=== PATIENT | female | born 1940 | race Caucasian/White ===

== ENCOUNTER 2017-01-26 14:02 | Emergency (ER) | payer MEDICARE, OTHER ==
[~2017-01-26] VITALS: Ht 170.1 cm; Wt 59.0 kg
[~2017-01-26 14:02] MED LIST: MOTRIN800 MG PO; NORCO 325 MG-51 TAB PO; PREDNICOT10 MG PO; VITAMIN D50000 I2 PO
[2017-01-26 17:39] LABS: BILIRUBIN 1+ (NEGATIVE); BLOOD NEGATIVE (NEGATIVE); CLARITY SL CLOUDY (CLEAR); COLOR YELLOW (YELLOW); GLUCOSE NEGATIVE (NEGATIVE); KETONE 2+ (NEGATIVE); LEUKO ESTERASE NEGATIVE (NEGATIVE); NITRITE NEGATIVE (NEGATIVE); PH 5.5 (5.0-9.0); PROTEIN TRACE (NEGATIVE); SPECIFIC GRAVITY >= 1.030 (1.005-1.030); UROBILINOGEN 0.2 E.U./dl (0.2-1.0)
[2017-01-26 17:49] LABS: BACTERIA 1+; MUCOUS 2+
[2017-01-26 18:46] LABS: BASO % 0.8 % (0.0-1.0); EOS # 0.1 10*3/uL (0.0-0.4); EOS % 2.2 % (1.0-4.0); HEMATOCRIT 35.5 % (37.0-47.0); HEMOGLOBIN 11.7 g/dl (12.0-16.0); LYMPH # 1.6 10*3/uL (1.3-4.4); LYMPH % 31.2 % (27.0-41.0); MEAN CELL VOLUME 91.7 fl (81.0-99.0); MEAN CORPUSCULAR HGB 30.2 pg (27.0-31.0); MEAN PLATELET VOLUME 10.7 fl (9.6-12.3); MONO # 0.5 10*3/uL (0.1-1.0); MONO % 9.7 % (3.0-9.0); NEUT # 2.8 10*3/uL (2.3-7.9); NEUT % 55.9 % (47.0-73.0); PLATELET COUNT AUTOMATED 204 10*3/uL (130-400); RED BLOOD COUNT 3.87 10*6/uL (4.10-5.10); RED CELL DISTRI WIDTH 13.7 % (0-14.5)
[2017-01-26 19:01] LABS: ALBUMIN 3.4 gm/dl (3.1-4.5); ALKALINE PHOSPHATASE 50 U/L (45-117); BILIRUBIN, TOTAL 0.3 mg/dl (0.2-1.0); BUN 30 mg/dl (7-24); CARBON DIOXIDE 28 mmol/L (21-32); CHLORIDE 107 mmol/L (98-107); EST GLOM FILT AFRICAN AMERICAN > 60 ml/min; GLUCOSE 82 mg/dL (65-99); POTASSIUM 3.8 mmol/L (3.5-5.1); SGOT/AST 20 IU/L (3-35); SGPT/ALT 17 U/L (12-78); SODIUM 141 mmol/L (136-145); TOTAL PROTEIN 6.3 gm/dL (6.4-8.2)
[2017-01-26 19:02] LABS: C-REACTIVE PROTEIN < 0.29 MG/DL (0-0.3)
== END 2017-01-26 22:00 | disposition short-term general hospital (02) ==
LOC: ED 14:02
PROVIDERS: Physician Assistant
DX: R53.1 Weakness (principal); R20.0 Anesthesia of skin; R20.2 Paresthesia of skin; M54.5 Low back pain

== ENCOUNTER 2017-02-09 11:41 | Inpatient (IN) | payer MEDICARE, OTHER ==
[2017-02-09] VITALS (9 sets, daily range): BP systolic 107–151; BP diastolic 49–90
[~2017-02-09] VITALS: Ht 167.6 cm; Wt 58.7 kg
--- NOTE | ~2017-02-09 | CON ---
[place], [place] REPORT OF CONSULTATION NAME: ALLEN LO UNIT #: [id number] ROOM: 518 DOCTOR: JESSICA JOHNSON MD BIRTHDATE: [birth year] DOS: 02/10/2017 REASON FOR CONSULTATION: Atrial fibrillation. ASSESSMENT: 1. Current presentation for incidental finding of fast heart rate. 2. Electrocardiogram in the Emergency Room showing evidence of new-onset atrial fibrillation that is asymptomatic. 3. Recent neck surgery, the patient was in rehab. 4. Elevated hemoglobin A1c with possible prediabetic status. 5. Early family history of heart disease. PLAN: 1. Cycle cardiac enzymes. 2. Check D-dimer. 3. Proceed with echocardiogram. 4. Agree with Toprol. 5. Stop heparin and initiate Xarelto. 6. We will consider MADELINE cardioversion as an outpatient in 3 weeks. 7. No further cardiac testing at this time. HISTORY AND PHYSICAL: The patient is a pleasant 76-year-old female unknown to our practice, was referred by for evaluation of newly recognized fast heart rate that was consistent with atrial fibrillation. The patient was completely asymptomatic. She is in rehab following an x-ray on January 28. The patient never had any complaint of chest pain, chest pressure, heaviness or tightness. Never has had any symptomatic palpitation or any associated dizziness, lightheadedness or near syncope. No fever, no chills, no night sweats. No PND, orthopnea or pedal edema. No dizziness, lightheadedness or near syncope. Very limited functional capacity given her recent surgery. PAST MEDICAL HISTORY: As detailed above in my assessment. SOCIAL HISTORY: The patient denies ever any tobacco, alcohol, or illicit drug abuse. FAMILY HISTORY: The patient's father had myocardial infarction at 47 and her brother had myocardial infarction at age 62. CURRENT MEDICATIONS: Lopressor, Cymbalta, Rocephin, vitamin D, Flomax, MiraLax, Os-Bravo, Zofran, magnesium, Dulcolax, Beaver, Tylenol. ALLERGIES: The patient has no known drug allergies. REVIEW OF SYSTEMS: Currently, the patient denies any headache, diplopia or blurry vision. No fever, no chills, no night sweats. No abdominal pain, no bright red blood per rectum or tarry stools. Admits to joint pain and occasional muscular pain. No anxiety. Occasional depression. No polyuria, no polydipsia, no skin rash. Review of all other systems has been negative. [place], [place] REPORT OF CONSULTATION NAME: ALLEN LO UNIT #: [id number] ROOM: 518 DOCTOR: JESSICA JOHNSON MD BIRTHDATE: [birth year] PHYSICAL EXAMINATION: GENERAL: The patient is alert, oriented x3, quite pleasant. VITAL SIGNS: Blood pressure currently 130/75, heart rate 150, respiratory rate of 14, temperature 99 which is equivalent to T-max. HEENT: Extraocular muscles intact. Pupils equal, round, reactive to light. Conjunctivae: No pallor. Throat: No petechiae. NECK: Good carotid upstroke. Unable to appreciate any bruit, no lymphadenopathy, no thyromegaly. HEART: S1, S2 with holosystolic murmur at left upper sternal border, distant heart sound. No rub or sternal heave. CHEST AND BACK: No deformities. LUNGS: Clear to auscultation. Slight decrease in air movement. No wheezing, no rales. ABDOMEN: Soft, nontender, present bowel sounds, no masses, no bruits. LOWER EXTREMITIES: There is no edema with faint distal pulses. NEUROLOGIC: Grossly nonfocal. SKIN: No significant rash. LABORATORY DATA: White count 8.1, hemoglobin 12.1, potassium 4.0, creatinine 0.48. Hemoglobin A1c 6.0. Total cholesterol 177, LDL 102, HDL 52. Normal thyroid function tests. JESSICA JOHNSON MD CM:CONSTR:REPORT OF CONSULTATION 1726 02/11/17 0041 interface
--- NOTE | ~2017-02-09 | PR ---
[place], [place] PROGRESS NOTE [id number] UNIT #: [id number] ROOM: 518 DOCTOR: JESSICA JOHNSON MD BIRTHDATE: [birth year] DOS: 02/11/2017 SUBJECTIVE: The patient is sitting in bed, almost completely flat, does not appear in distress. Denies any specific cardiac complaints. No symptomatic palpitation. No chest pain. No chest pressure. No reported shortness of breath. OBJECTIVE: VITAL SIGNS: Blood pressure 130/75, heart rate 75, respiratory rate of 14, temperature 97.3. NECK: Good upstroke. No JVD. HEART: S1, S2. No rub. LUNGS: Decreased air movement, but no albaro wheezing or rales. EXTREMITIES: Lower extremities: There is no edema. LABORATORY DATA: White count is 8.9, hemoglobin 10.8, platelets 331,000. Potassium 4.0, creatinine 0.4, GFR more than 60%. Hemoglobin A1c 6.0. Total cholesterol 177, LDL 102, HDL 52. Vitamin D is 23. Normal thyroid function test. ASSESSMENT AND PLAN: Incidental finding of asymptomatic atrial fibrillation in a patient who was receiving physical therapy following her cervical fusion surgery. From the cardiac point of view, the patient is completely asymptomatic. We will follow rate control along with anticoagulation. Xarelto was explained to the patient in details with risks, benefits and alternatives. The patient agrees for that for now. There is slight drop in hemoglobin and this should be watched carefully for now. Increase activity, consider physical therapy and the patient can be discharged home from our point of view. We will see the patient in our clinic within 2-4 weeks and a stress test can be done as an outpatient. JESSICA JOHNSON MD CM:PNTRANS 2 39 JESSICA JOHNSON MD 02/11/171939 interface
[2017-02-09] MEDS ORDERED: CALCIUM 500 +1 EAC1 PO (11:59)
[2017-02-09] MEDS ORDERED: CIPRO500 MG PO (12:00)
[2017-02-09] MEDS ORDERED: HEPARIN SO5000 UNIT1 SC (12:00)
[2017-02-09] MEDS ORDERED: CYMBALTA30 MG PO (12:00)
[2017-02-09] MEDS ORDERED: VICODIN 5-3001 EACH PO (12:01)
[2017-02-09] MEDS ORDERED: MIRALAX POWDER255 G1 PO (12:01)
[2017-02-09] MEDS ORDERED: METHOCARBAMOL500 M1 PO (12:01)
[2017-02-09] MEDS ORDERED: ALEVE220 MG PO (12:02)
[2017-02-09] MEDS ORDERED: SENNA8.6 MG PO (12:03)
[2017-02-09] MEDS ORDERED: FLOMAX0.4 MG PO (12:03)
[2017-02-09 12:14] LABS: BASO # 0.1 10*3/uL (0.0-0.1); BASO % 0.6 % (0.0-1.0); EOS # 0.1 10*3/uL (0.0-0.4); EOS % 0.7 % (1.0-4.0); HEMATOCRIT 37.7 % (37.0-47.0); HEMOGLOBIN 12.1 g/dl (12.0-16.0); LYMPH % 12.4 % (27.0-41.0); MEAN CELL VOLUME 93.5 fl (81.0-99.0); MEAN CORPUSCULAR HGB CONC 32.1 g/dl (33.0-37.0); MEAN PLATELET VOLUME 9.7 fl (9.6-12.3); MONO # 0.5 10*3/uL (0.1-1.0); MONO % 5.7 % (3.0-9.0); NEUT # 6.5 10*3/uL (2.3-7.9); NEUT % 80.2 % (47.0-73.0); PLATELET COUNT AUTOMATED 360 10*3/uL (130-400); RED BLOOD COUNT 4.03 10*6/uL (4.10-5.10); RED CELL DISTRI WIDTH 13.9 % (0-14.5); WHITE BLOOD COUNT 8.1 10*3/uL (4.8-10.8)
[2017-02-09 12:23] LABS: PROTHROMBIN TIME 10.3 SECONDS (9.0-12.4)
[2017-02-09 12:31] LABS: ALBUMIN 3.1 gm/dl (3.1-4.5); ALKALINE PHOSPHATASE 77 U/L (45-117); BILIRUBIN, TOTAL 0.2 mg/dl (0.2-1.0); BUN 10 mg/dl (7-24); CARBON DIOXIDE 28 mmol/L (21-32); CHLORIDE 101 mmol/L (98-107); CPK 45 U/L (26-192); EST GLOM FILT AFRICAN AMERICAN > 60 ml/min; GLUCOSE 89 mg/dL (65-99); MAGNESIUM 2.1 mg/dL (1.5-2.1); POTASSIUM 4.4 mmol/L (3.5-5.1); SGOT/AST 18 IU/L (3-35); SGPT/ALT 34 U/L (12-78); SODIUM 138 mmol/L (136-145); TOTAL PROTEIN 6.6 gm/dL (6.4-8.2)
[2017-02-09 12:32] LABS: CKMB 1.1 ng/ml (0.5-3.6); TROPONIN I < 0.015 ng/ml (<0.045)
[2017-02-09 13:01] LABS: BILIRUBIN NEGATIVE (NEGATIVE); BLOOD TRACE-INTACT (NEGATIVE); CLARITY SL CLOUDY (CLEAR); COLOR YELLOW (YELLOW); GLUCOSE NEGATIVE (NEGATIVE); KETONE NEGATIVE (NEGATIVE); LEUKO ESTERASE 2+ (NEGATIVE); NITRITE NEGATIVE (NEGATIVE); PH 6.5 (5.0-9.0); PROTEIN NEGATIVE (NEGATIVE); SPECIFIC GRAVITY <= 1.005 (1.005-1.030); UROBILINOGEN 0.2 E.U./dl (0.2-1.0)
[2017-02-09 13:11] LABS: BACTERIA TRACE; RBC 0-2 rbc/hpf (0-2); URINE REFLEX COMMENT YES (NO); YEAST 1+
[2017-02-10] VITALS: BP 116/57
[2017-02-10 04:00] VITALS: BP 123/73
[2017-02-10 04:46] LABS: BASO # 0.1 10*3/uL (0.0-0.1); BASO % 0.8 % (0.0-1.0); EOS # 0.1 10*3/uL (0.0-0.4); EOS % 1.6 % (1.0-4.0); HEMATOCRIT 33.3 % (37.0-47.0); HEMOGLOBIN 10.8 g/dl (12.0-16.0); LYMPH # 1.2 10*3/uL (1.3-4.4); LYMPH % 13.4 % (27.0-41.0); MEAN CORPUSCULAR HGB 30.2 pg (27.0-31.0); MEAN CORPUSCULAR HGB CONC 32.4 g/dl (33.0-37.0); MONO # 0.5 10*3/uL (0.1-1.0); MONO % 5.6 % (3.0-9.0); NEUT % 78.2 % (47.0-73.0); PLATELET COUNT AUTOMATED 331 10*3/uL (130-400); RED BLOOD COUNT 3.58 10*6/uL (4.10-5.10); RED CELL DISTRI WIDTH 13.9 % (0-14.5); WHITE BLOOD COUNT 8.9 10*3/uL (4.8-10.8)
[2017-02-10 04:57] LABS: INTERNATIONAL NORM RATIO 1.1 (2.0-3.5); PROTHROMBIN TIME 11.3 SECONDS (9.0-12.4)
[2017-02-10 05:16] LABS: BUN 10 mg/dl (7-24); CARBON DIOXIDE 28 mmol/L (21-32); CHLORIDE 104 mmol/L (98-107); CHOLESTEROL 177 mg/dL (<200); EST GLOM FILT AFRICAN AMERICAN > 60 ml/min; GLUCOSE 98 mg/dL (65-99); MAGNESIUM 2.1 mg/dL (1.5-2.1); PHOSPHOROUS 3.2 mg/dL (2.5-4.9); SODIUM 141 mmol/L (136-145); THYROXINE (T4) TOTAL 10.8 ug/dl (4.8-13.9); TRIGLYCERIDES 115 mg/dl (<150); VLDL CHOLESTEROL 23 mg/dL (6-40)
[2017-02-10 05:25] LABS: FREE T4 1.23 ng/dl (0.76-1.46); FREE THYROXIN INDEX/T7 4.2 (1.5-5.4); HDL CHOLESTEROL 52 mg/dl (40-60); LDL CHOLESTEROL 102 mg/dL (9-159); T3 UPTAKE 39 % (31-39)
[2017-02-10 06:52] LABS: FOLIC ACID 13.48 ng/mL (>5.38)
[2017-02-10 08:00] VITALS: BP 127/65
[2017-02-10 12:00] VITALS: BP 130/75
[2017-02-10 16:00] VITALS: BP 100/63
[2017-02-10 20:00] VITALS: BP 130/75
[2017-02-11] VITALS: BP 130/75
[2017-02-11 08:00] VITALS: BP 103/57
[2017-02-11] MEDS ORDERED: METOPROLOL TART50 M1 PO (10:38)
[2017-02-11] MEDS ORDERED: XARE20MG PO (10:38)
[2017-02-11] MEDS ORDERED: FLUCONAZOLE100 MG PO (10:38)
[2017-02-11] MEDS ORDERED: D-1000 185 MG-11 TAB PO (10:38)
[2017-02-11] MEDS ORDERED: VICODIN 5-3001 EACH PO (10:38)
[2017-02-11 12:00] VITALS: BP 113/47
== END 2017-02-11 13:40 | disposition other institution (70) | DRG 699 ==
LOC: ED 11:41 → EDHOLD 13:14 → 5E 13:14 → EDHOLD 14:17 → 5E 15:24
PROVIDERS: Internal Medicine; Registered Nurse
DX: T83.511A Infection and inflammatory reaction due to indwelling urethral catheter, initial encounter (principal); E44.1 Mild protein-calorie malnutrition; G62.9 Polyneuropathy, unspecified; I48.91 Unspecified atrial fibrillation; N30.01 Acute cystitis with hematuria; K59.09 Other constipation; E55.9 Vitamin D deficiency, unspecified; M54.5 Low back pain; Y83.8 Other surgical procedures as the cause of abnormal reaction of the patient, or of later complication, without mention of misadventure at the time of the procedure; Z80.1 Family history of malignant neoplasm of trachea, bronchus and lung; Z82.49 Family history of ischemic heart disease and other diseases of the circulatory system; Z79.2 Long term (current) use of antibiotics; Z79.899 Other long term (current) drug therapy; Z98.1 Arthrodesis status; Y92.89 Other specified places as the place of occurrence of the external cause; Z68.21 Body mass index [BMI] 21.0-21.9, adult

== ENCOUNTER 2019-08-20 10:45 | Inpatient (IN) | payer MEDICARE, OTHER ==
[~2019-08-20] VITALS: Ht 165.1 cm; Wt 64.9 kg
[2019-08-20 10:45] VITALS: BP 177/62
[~2019-08-20 10:45] MED LIST changes: +ALEVE220 MG PO; +CALCIUM 500 +1 EAC1 PO; +CIPRO500 MG PO; +CYMBALTA30 MG PO; +D-1000 185 MG-11 TAB PO; +FLOMAX0.4 MG PO; +FLUCONAZOLE100 MG PO; +HEPARIN SO5000 UNIT1 SC; +METHOCARBAMOL500 M1 PO; +METOPROLOL TART50 M1 PO; +MIRALAX POWDER255 G1 PO; +SENNA8.6 MG PO; +VICODIN 5-3001 EACH PO; +XARE20MG PO
[2019-08-20 11:55] LABS: BASO % 0.4 % (0.0-1.0); EOS # 0.1 10*3/uL (0.0-0.4); EOS % 0.7 % (1.0-4.0); HEMATOCRIT 38.6 % (37.0-47.0); HEMOGLOBIN 12.5 g/dl (12.0-16.0); LYMPH # 0.9 10*3/uL (1.3-4.4); LYMPH % 12.4 % (27.0-41.0); MEAN CELL VOLUME 91.3 fl (81.0-99.0); MEAN CORPUSCULAR HGB 29.6 pg (27.0-31.0); MEAN CORPUSCULAR HGB CONC 32.4 g/dl (33.0-37.0); MEAN PLATELET VOLUME 10.6 fl (9.6-12.3); MONO # 0.6 10*3/uL (0.1-1.0); MONO % 7.7 % (3.0-9.0); NEUT # 5.9 10*3/uL (2.3-7.9); NEUT % 78.7 % (47.0-73.0); PLATELET COUNT AUTOMATED 221 10*3/uL (130-400); RED BLOOD COUNT 4.23 10*6/uL (4.10-5.10); RED CELL DISTRI WIDTH 13.2 % (0-14.5); WHITE BLOOD COUNT 7.5 10*3/uL (4.8-10.8)
[2019-08-20 12:15] LABS: ALBUMIN 3.9 gm/dl (3.1-4.5); ALKALINE PHOSPHATASE 72 U/L (45-117); BUN 16 mg/dl (7-24); CHLORIDE 101 mmol/L (98-107); CREATININE 0.86 mg/dL (0.55-1.02); LIPASE 56 U/L (73-393); POTASSIUM 4.2 mmol/L (3.5-5.1); SGOT/AST 20 IU/L (3-35); SGPT/ALT 23 U/L (12-78); SODIUM 135 mmol/L (136-145); TOTAL PROTEIN 7.6 gm/dL (6.4-8.2)
[2019-08-20 12:41] LABS: BILIRUBIN NEGATIVE (NEGATIVE); BLOOD 3+ (NEGATIVE); CLARITY SL CLOUDY (CLEAR); COLOR YELLOW (YELLOW); GLUCOSE NEGATIVE (NEGATIVE); KETONE 1+ (NEGATIVE); NITRITE POSITIVE (NEGATIVE); UROBILINOGEN 0.2 E.U./dl (0.2-1.0)
[2019-08-20 12:55] LABS: BACTERIA 1+; LEUKO ESTERASE NEGATIVE (NEGATIVE)
--- NOTE | 2019-08-20 12:56 | NUR ---
PT ASSISTED TO BSC PER REQUEST. PT STATES PAIN IS BETTER AFTER PAIN MEDICATION.
[2019-08-20 13:02] VITALS: BP 181/71
--- NOTE | 2019-08-20 14:50 | NUR ---
PT ASSISTED TO BSC AND BACK TO BED, GAIT UNSTEADY.
[2019-08-20 15:05] VITALS: BP 140/63
[2019-08-20 16:05] VITALS: BP 172/84
--- NOTE | 2019-08-20 16:05 | NUR ---
Time: 1604 A 78 year old FEMALE admitted to 4E under services of DR. ALIRIO CRENSHAW,MICHOACANO Bee Pt. arrived via stretcher from ER. Chief complaint: BACK PAIN. TRISTON COTTON
[2019-08-20] MEDS ORDERED: Lopressor25 MG PO (16:28)
--- NOTE | 2019-08-20 17:00 | NUR ---
DR. AMEZQUITA ON THE FLOOR AWARE PT IN ROOM AND MEDICATIONS VERIFIED.
--- NOTE | 2019-08-20 19:42 | NUR ---
PT ASSISTED UP TO BSC FLEETS ADMINISTERED, PT TOLERATED. CALL LIGHT IN REACH. VISITOR AT HER SIDE.
[2019-08-20 20:00] VITALS: BP 147/69
[2019-08-21] VITALS: BP 155/64
--- NOTE | 2019-08-21 07:24 | NUR ---
24 HR chart check completed.
[2019-08-21 08:00] VITALS: BP 127/55
--- NOTE | 2019-08-21 08:37 | NUR ---
PHYSICAL THERAPY Screen received as well as orders for PT will follow thank you Florina Culver PT
--- NOTE | 2019-08-21 08:46 | NUR ---
PT REQUESTS SOMETHING STRONGER THAN TYLENOL FOR PAIN AT THIS TIME. PT STATES THAT HER PAIN IS WORSE THAN USUAL DUE TO HER UTI. DR AMEZQUITA NOTIFIED AND NEW ORDERS RECEIVED FOR DILAUDID 0.5 MG VIA IV EVERY 6 HOURS, NEEDED. WILL NOTIFY PT AND MEDICATE WHEN AVAILABLE TO PULL
--- NOTE | 2019-08-21 09:00 | NUR ---
Busperson in to talk to patient. Patient states lives at home alone with her brother and cousin checking in on her. There are 26 steps in the home. Physician: Dr. Paty Hairston Pharmacy: [facility] Home health services: none Patient's level of ADLs: minimal assistance Patient has working utilities: yes DME: BSC, cane, walker Follow-up physician's appointment after d/c: she prefers to make her own follow up appt after discharge Does patient want to access PORTAL?: no Discharge plan discussed with patient. She lives at home alone with her brother checking in on her and her cousin helping her with getting her groceries and emptying her BSC. Discussed home health care services and she denies any home needs at this time. When medically stable she will be discharged to home. Her brother will provide transportation on discharge. +UA, on rocephin, UC pending. NAEEM CHOUDHARY
[2019-08-21 10:45] VITALS: BP 130/82
--- NOTE | 2019-08-21 11:48 | NUR ---
RESP THERAPIST TELLS THIS NURSE THAT PT IS C/O NAUSEA. DR AMEZQUITA NOTIFIED AND NEW ORDERS RECEIVED FOR ZOFRAN 8 MG EVERY 6 HOURS VIA IV NEEDED. WILL GIVE TO PT WHEN AVAILABLE TO PULL.
[2019-08-21 12:00] VITALS: BP 132/75
--- NOTE | 2019-08-21 13:14 | NUR ---
Nursing screen received and chart reviewed. Patient admitted with UTI and constipation with no bowel movement x 6 days. Patient lives alone with family checking in often. Patient denies any needs upon d/c and plans to return home upon d/c. At this time no further OT indicated. Consider OT referral if patient should have a decline in ADLs from baseline. Thank you. Leyda Moeller OTR/l
[2019-08-21 16:00] VITALS: BP 102/45
--- NOTE | 2019-08-21 19:23 | NUR ---
DR COATES CONSULT CALLED AT THIS TIME. NO ANSWER, VOICEMAIL LEFT.
[2019-08-21 20:00] VITALS: BP 141/58
--- NOTE | 2019-08-21 20:00 | NUR ---
PATIENT AWAKE AND ALERT, LAYING BED WATCHING TV AT THIS TIME. PATIENT HAS NO COMPLAINTS AT THIS TIME. SEE ASSESSMENT. WILL MONITOR.
--- NOTE | 2019-08-21 20:10 | NUR ---
PATIENT AWAKE & ALERT SITTING AT THE SIDE OF THE BED. PATIENT C/O LOWER BACK PAIN. PATIENT STATES THAT BREATHING IS OK AT THIS TIME. SEE ASSESSMENT. WILL MONITOR.
--- NOTE | 2019-08-21 20:11 | NUR ---
PATIENT REQUESTING PAIN MEDICATION FOR LOWER BACK PAIN RATED 8/10 ON 0/10 SCALE. NORCO ADMINISTERED PRESCRIBED. WILL MONITOR FOR EFFECTIVENESS.
[2019-08-22] VITALS: BP 108/50; BP 99/46
--- NOTE | 2019-08-22 | NUR ---
PATIENT RESTING WITH EYES CLOSED. RESPIRATIONS EASY AND UNLABORED. BED ALARM ON. CALL LIGHT IN REACH. WILL MONITOR.
--- NOTE | 2019-08-22 01:25 | NUR ---
24 HR chart check completed.
--- NOTE | 2019-08-22 05:45 | NUR ---
PATIENT HAS HAD NO URINE OUTPUT 11P-7A. PATIENT DENIES ANY PAIN OR PRESSURE. BLADDER SCANNED FOR NO URINE.
[2019-08-22 08:00] VITALS: BP 142/48
--- NOTE | 2019-08-22 08:56 | NUR ---
DILAUDID GIVEN PER PATIENT REQUEST FOR COMPLAINTS OF BACK PAIN RATED 8/10. WILL ASSESS EFFECTIVENESS.
--- NOTE | 2019-08-22 10:09 | NUR ---
DILAUDID EFFECTIVE PER PATIENT. WILL CONTINUE TO MONITOR.
[2019-08-22 12:00] VITALS: BP 143/70
--- NOTE | 2019-08-22 15:19 | NUR ---
Patient resting quietly with no c/o discomfort. Respirations easy and regular. Vital signs stable. No overt distress. ZACH REINA
[2019-08-22 16:00] VITALS: BP 129/56; BP 131/73
--- NOTE | 2019-08-22 19:25 | NUR ---
REPORT RECEIVED FROM ZACH STEPHENS. PT WATCHING TV AT THIS TIME. NOT S/S OF DISTRESS NOTED. CALL LIGHT IN REACH.
[2019-08-22 20:00] VITALS: BP 118/51
--- NOTE | 2019-08-22 22:00 | NUR ---
PT LYING IN BED AT THIS TIME WATCHING TV. PT VOICES NO COMPLAINTS. CALL LIGHT IN REACH.
[2019-08-23] VITALS: BP 117/55
--- NOTE | 2019-08-23 01:00 | NUR ---
PT SLEEPING AT THIS TIME.
[2019-08-23 08:00] VITALS: BP 125/53
--- NOTE | 2019-08-23 09:00 | NUR ---
case management visits with patient, she states she will return home when medically stable, patient denies any home needs
[2019-08-23 12:00] VITALS: BP 137/60
[2019-08-23 14:00] VITALS: BP 139/88
[2019-08-23] MEDS ORDERED: GABAPENTIN100 M2 PO (14:48)
--- NOTE | 2019-08-23 15:24 | NUR ---
PHYSICAL THERAPY Abril completed full report to follow pt is a moderate level of complexity 27793 PT to work on transfers, amb, balanc/safety/strengthening. Recomend SNF at discharge Florina Culver PT
--- NOTE | 2019-08-23 17:50 | NUR ---
CALLED AND SPOKE TO DR AMEZQUITA. [facility] NEW ORDER RECIEVED FOR SOCIAL SERVICE CONSULT FOR SNF.
--- NOTE | 2019-08-23 19:00 | NUR ---
REPORT RECEIVED FROM BLAYNE STEPHENS. PT LYING IN BED AT THIS TIME WATCHING TV. VOICES NO COMPLAINTS. CALL LIGHT IN REACH.
--- NOTE | 2019-08-23 19:50 | NUR ---
24 HR chart check completed.
[2019-08-24] VITALS (7 sets, daily range): BP systolic 104–146; BP diastolic 50–71
--- NOTE | 2019-08-24 07:17 | NUR ---
Patient requesting a referral to the [facility]. Contacted facility and faxed referral. 3 night stay complete. Patient ok to go when medically stable for discharge.
--- NOTE | 2019-08-24 09:35 | NUR ---
PHYSICAL THERAPY Patient seen this am 1:1 for therapy visit and was resting supine in bed upon therapist arrival. Patient identified by name / and was just getting ready to take her morning meds with Nurse present. Patient reports only mild 3/10 c/o of LBP at rest and stated she is being prepped for pm Colonoscopy. Patient transfers supine to sit EOB with MOD A, needing therapist assist with B LE's to prevent increased strain on her low back. Patient performed sit to stand transfer CONSERVATION SCIENTIST/MIN, completing SPT to BSC while demonstrating increased difficulty picking up her feet. Patient is very cognitive / guarded regarding her low back pain and reports increased c/o of pain 10/10 while sitting on BSC secondary to "slouched" seated posture. Patient returned to supine in bed MOD A and remained with call light, tray table and telephone. Will continue per POC as tolerated, total treatment time 14 minutes. Kingston Zelaya, ROBOTIC WELDING OPERATOR
--- NOTE | 2019-08-24 12:26 | NUR ---
COLO PREP COMPLETE. PACKET FILLED OUT. SURGERY NOTIFIED.
--- NOTE | 2019-08-24 15:08 | NUR ---
According to Dr. Hunter, he discharged the patient on 08/23/19 but patient did not go because patient was then scheduled for an egd/colo with Dr. Roberson. Dr. Hunter would like patients nurse to contact Dr. Roberson after procedure to make sure patient is cleared by him to go. If cleared, patient is ok to go to rehab suites this evening with current discharge order in. Contacted [place] wardrobe consultant and passed message along.
--- NOTE | 2019-08-24 15:28 | NUR ---
SPOKE TO NEENA FROM SURGERY. STATES PTS VITALS ARE STABLE AFTER EGD/COLO. DR COATES STATES THE PT CAN BE D/C. T.O. NEW MEDICATIONS INCLUDE OMEPRAZOLE 20MG DAILY AND COLACE 100 DAILY.
--- NOTE | 2019-08-24 15:37 | NUR ---
Patient is discharged. [facility] spoke with [facility] and arranged a 6pm transport to . Manager [facility] Home notified next of Kin via voice message, and work adjustment clerkralf [facility] Team to transport at 6 pm. has been notified. -JUMANA Garcia
[2019-08-24] MEDS ORDERED: COLACE100 MG PO (16:20)
[2019-08-24] MEDS ORDERED: OMEPRAZOLE MAGN20 MG PO (16:21)
--- NOTE | 2019-08-24 16:33 | NUR ---
DR AMEZQUITA NOTIFIED OF OKAY FROM DR COATES TO BE D/C FROM HIS STANDPOINT.
--- NOTE | 2019-08-24 16:39 | NUR ---
PHYSICAL THERAPY CO-SIGN I approve of the Phyical Therapy notes written above. Florina Culver PT
--- NOTE | 2019-08-24 17:24 | NUR ---
HEP LOCK REMOVED. PT TOLERATED WELL. BELONGINGS WITH PT. WILL BE PICKED UP BY [facility] FOR TRANSFER TO REHAB SUITS.
--- NOTE | 2019-08-24 17:54 | NUR ---
ELLIOTTTEAM HERE TO JAVA ARCHITECT PATIENT TO TAKE TO REHAB SUITES.
--- NOTE | 2019-08-24 17:55 | NUR ---
Discharge instructions reviewed with patient/family. Patient receptive and verbalizes understanding. Follow-up care arranged. Written instructions given to patient/family. Pt going to [facility] for rehab. Von has taken pt off the floor. TRELL SINGH
--- NOTE | 2019-08-24 18:57 | NUR ---
SPOKE WITH LOLLY FROM [facility]AB [facility]. REPORT GIVEN OVER THE PHONE.
== END 2019-08-24 18:35 | disposition other institution (70) | DRG 552 ==
LOC: ED 10:45 → 4E 14:48 → EDHOLD 14:48 → 4E 15:54
PROVIDERS: Emergency Medicine; ADMIT Internal Medicine
PROC: 0DB68ZX Excision of Stomach, Via Natural or Artificial Opening Endoscopic, Diagnostic (ICD-10-PCS; principal; 2019-08-24)
PROC: 0DJD8ZZ Inspection of Lower Intestinal Tract, Via Natural or Artificial Opening Endoscopic (ICD-10-PCS; principal; 2019-08-24)
DX: M47.896 Other spondylosis, lumbar region (principal); N39.0 Urinary tract infection, site not specified; M48.56XA Collapsed vertebra, not elsewhere classified, lumbar region, initial encounter for fracture; I48.21 Permanent atrial fibrillation; K22.10 Ulcer of esophagus without bleeding; K59.09 Other constipation; D12.3 Benign neoplasm of transverse colon; E55.9 Vitamin D deficiency, unspecified; I10 Essential (primary) hypertension; R62.7 Adult failure to thrive; K44.9 Diaphragmatic hernia without obstruction or gangrene; K29.70 Gastritis, unspecified, without bleeding; Z68.23 Body mass index [BMI] 23.0-23.9, adult; Z79.01 Long term (current) use of anticoagulants

== ENCOUNTER 2019-09-23 16:03 | Inpatient (IN) | payer MEDICARE ==
[~2019-09-23] VITALS: Ht 162.5 cm; Wt 68.5 kg
[~2019-09-23 16:03] MED LIST changes: +COLACE100 MG PO; +GABAPENTIN100 M2 PO; +Lopressor25 MG PO; +OMEPRAZOLE MAGN20 MG PO
[2019-09-23 16:18] VITALS: BP 135/85
[2019-09-23 17:03] LABS: BASO % 0.2 % (0.0-1.0); EOS % 0.2 % (1.0-4.0); HEMATOCRIT 37.7 % (37.0-47.0); HEMOGLOBIN 12.2 g/dl (12.0-16.0); LYMPH # 0.9 10*3/uL (1.3-4.4); LYMPH % 9.6 % (27.0-41.0); MEAN CELL VOLUME 92.2 fl (81.0-99.0); MEAN CORPUSCULAR HGB 29.8 pg (27.0-31.0); MEAN CORPUSCULAR HGB CONC 32.4 g/dl (33.0-37.0); MEAN PLATELET VOLUME 10.5 fl (9.6-12.3); MONO # 0.6 10*3/uL (0.1-1.0); MONO % 6.6 % (3.0-9.0); NEUT # 8.1 10*3/uL (2.3-7.9); NEUT % 83.1 % (47.0-73.0); PLATELET COUNT AUTOMATED 232 10*3/uL (130-400); RED BLOOD COUNT 4.09 10*6/uL (4.10-5.10); RED CELL DISTRI WIDTH 13.7 % (0-14.5); WHITE BLOOD COUNT 9.8 10*3/uL (4.8-10.8)
[2019-09-23 17:17] LABS: ALBUMIN 2.5 gm/dl (3.1-4.5); ALKALINE PHOSPHATASE 135 U/L (45-117); BUN 20 mg/dl (7-24); CHLORIDE 103 mmol/L (98-107); CREATININE 0.71 mg/dL (0.55-1.02); LIPASE 25 U/L (73-393); POTASSIUM 4.1 mmol/L (3.5-5.1); SGOT/AST 43 IU/L (3-35); SGPT/ALT 45 U/L (12-78); SODIUM 135 mmol/L (136-145); TOTAL PROTEIN 6.5 gm/dL (6.4-8.2)
[2019-09-23 18:10] LABS: BILIRUBIN 1+ (NEGATIVE); BLOOD 1+ (NEGATIVE); CLARITY TURBID (CLEAR); COLOR YELLOW (YELLOW); GLUCOSE NEGATIVE (NEGATIVE); KETONE 2+ (NEGATIVE); SPECIFIC GRAVITY 1.015 (1.005-1.030)
[2019-09-23 18:11] LABS: LEUKO ESTERASE NEGATIVE (NEGATIVE); NITRITE NEGATIVE (NEGATIVE); UROBILINOGEN 0.2 E.U./dl (0.2-1.0)
[2019-09-23 18:22] LABS: BACTERIA 1+; MUCOUS TRACE; RBC 0-2 rbc/hpf (0-2); WBC 16-20 wbc/hpf (0-5)
[2019-09-23 18:25] VITALS: BP 114/74
[2019-09-23 18:54] VITALS: BP 128/70
[2019-09-23 19:52] VITALS: BP 137/62
[2019-09-23 20:00] VITALS: BP 125/90
[2019-09-24] VITALS (9 sets, daily range): BP systolic 100–118; BP diastolic 52–65
[2019-09-25] VITALS (13 sets, daily range): BP systolic 90–126; BP diastolic 48–80
[2019-09-25 13:58] LABS: BUN 17 mg/dl (7-24); CHLORIDE 107 mmol/L (98-107); CREATININE 0.74 mg/dL (0.55-1.02); POTASSIUM 2.9 mmol/L (3.5-5.1); SODIUM 140 mmol/L (136-145)
[2019-09-26] VITALS (14 sets, daily range): BP systolic 101–132; BP diastolic 48–74
[2019-09-26 06:03] LABS: BUN 17 mg/dl (7-24); CHLORIDE 112 mmol/L (98-107); CREATININE 0.64 mg/dL (0.55-1.02); SODIUM 141 mmol/L (136-145)
[2019-09-26 06:44] LABS: POTASSIUM 4.6 mmol/L (3.5-5.1)
[2019-09-27] VITALS (12 sets, daily range): BP systolic 82–120; BP diastolic 50–82
[2019-09-27 09:38] LABS: BUN 17 mg/dl (7-24); CHLORIDE 106 mmol/L (98-107); CREATININE 0.65 mg/dL (0.55-1.02); POTASSIUM 3.7 mmol/L (3.5-5.1); SODIUM 137 mmol/L (136-145)
[2019-09-28] VITALS (11 sets, daily range): BP systolic 94–110; BP diastolic 48–69
[2019-09-28 05:39] LABS: BUN 20 mg/dl (7-24); CHLORIDE 109 mmol/L (98-107); CREATININE 0.79 mg/dL (0.55-1.02); POTASSIUM 4.1 mmol/L (3.5-5.1); SODIUM 137 mmol/L (136-145)
[2019-09-28 06:01] LABS: BASO # 0.1 10*3/uL (0.0-0.1); BASO % 0.7 % (0.0-1.0); EOS # 0.3 10*3/uL (0.0-0.4); EOS % 2.3 % (1.0-4.0); HEMOGLOBIN 11.9 g/dl (12.0-16.0); LYMPH # 1.2 10*3/uL (1.3-4.4); LYMPH % 10.3 % (27.0-41.0); MEAN CELL VOLUME 91.4 fl (81.0-99.0); MEAN CORPUSCULAR HGB 29.4 pg (27.0-31.0); MEAN CORPUSCULAR HGB CONC 32.2 g/dl (33.0-37.0); MEAN PLATELET VOLUME 10.5 fl (9.6-12.3); MONO # 0.7 10*3/uL (0.1-1.0); MONO % 6.2 % (3.0-9.0); NEUT # 9.3 10*3/uL (2.3-7.9); NEUT % 79.4 % (47.0-73.0); PLATELET COUNT AUTOMATED 398 10*3/uL (130-400); RED BLOOD COUNT 4.05 10*6/uL (4.10-5.10); RED CELL DISTRI WIDTH 14.3 % (0-14.5); WHITE BLOOD COUNT 11.7 10*3/uL (4.8-10.8)
[2019-09-29] VITALS (7 sets, daily range): BP systolic 90–111; BP diastolic 53–72
[2019-09-29 06:10] LABS: BUN 20 mg/dl (7-24); CHLORIDE 106 mmol/L (98-107); CREATININE 0.72 mg/dL (0.55-1.02); SODIUM 137 mmol/L (136-145)
[2019-09-30] VITALS: BP 95/52
[2019-09-30 06:31] LABS: CHLORIDE 105 mmol/L (98-107); POTASSIUM 4.3 mmol/L (3.5-5.1); SODIUM 138 mmol/L (136-145)
[2019-09-30 06:34] LABS: BUN 22 mg/dl (7-24)
[2019-09-30 08:00] VITALS: BP 102/44
[2019-09-30 12:00] VITALS: BP 100/46
[2019-09-30 16:00] VITALS: BP 100/40
[2019-09-30 20:00] VITALS: BP 100/62; BP 96/63
[2019-10-01] VITALS (8 sets, daily range): BP systolic 88–148; BP diastolic 40–59
[2019-10-01 06:25] LABS: CHLORIDE 105 mmol/L (98-107); POTASSIUM 4.2 mmol/L (3.5-5.1); SODIUM 136 mmol/L (136-145)
[2019-10-01 06:37] LABS: BUN 26 mg/dl (7-24); CREATININE 0.75 mg/dL (0.55-1.02)
[2019-10-02] VITALS: BP 84/50; BP 96/50
[2019-10-02 08:00] VITALS: BP 90/62
[2019-10-02 12:00] VITALS: BP 99/53
[2019-10-02 16:00] VITALS: BP 106/80
[2019-10-02 20:00] VITALS: BP 101/66; BP 112/68
[2019-10-03] VITALS: BP 97/63
[2019-10-03 08:00] VITALS: BP 98/62
[2019-10-03 12:00] VITALS: BP 101/56
[2019-10-03 16:00] VITALS: BP 112/51
[2019-10-03 20:00] VITALS: BP 110/60
[2019-10-04] VITALS: BP 112/68
[2019-10-04 08:00] VITALS: BP 90/60
[2019-10-04] MEDS ORDERED: DIGOXIN125 MCG PO (10:07)
[2019-10-04] MEDS ORDERED: METOPROLOL SUCC50 M1 PO (10:07)
== END 2019-10-04 13:15 | disposition other institution (70) | DRG 291 ==
LOC: ED 16:03 → EDHOLD 18:56 → 4E 18:56
PROVIDERS: Family Medicine; Internal Medicine; Nurse Practitioner Family; ADMIT Internal Medicine
PROC: 5A2204Z Restoration of Cardiac Rhythm, Single (ICD-10-PCS; principal; 2019-09-23)
PROC: 5A2204Z Restoration of Cardiac Rhythm, Single (ICD-10-PCS; 2019-09-26)
DX: I11.0 Hypertensive heart disease with heart failure (principal); J18.9 Pneumonia, unspecified organism; I48.11 Longstanding persistent atrial fibrillation; N39.0 Urinary tract infection, site not specified; I50.43 Acute on chronic combined systolic (congestive) and diastolic (congestive) heart failure; E86.0 Dehydration; Z66 Do not resuscitate; Z51.5 Encounter for palliative care; K59.09 Other constipation; J43.2 Centrilobular emphysema; G89.29 Other chronic pain; M54.5 Low back pain; R62.7 Adult failure to thrive; R91.8 Other nonspecific abnormal finding of lung field; Z79.01 Long term (current) use of anticoagulants; Z68.25 Body mass index [BMI] 25.0-25.9, adult; Z79.899 Other long term (current) drug therapy; Z82.49 Family history of ischemic heart disease and other diseases of the circulatory system; Z82.3 Family history of stroke; Z80.1 Family history of malignant neoplasm of trachea, bronchus and lung; Z79.82 Long term (current) use of aspirin

== ENCOUNTER 2020-01-24 15:00 | Inpatient (IN) | payer MEDICARE, OTHER ==
[2020-01-24] VITALS (7 sets, daily range): BP systolic 100–144; BP diastolic 57–74
[~2020-01-24] VITALS: Ht 162.6 cm; Wt 59.9 kg
[~2020-01-24 15:00] MED LIST changes: +DIGOXIN125 MCG PO; +METOPROLOL SUCC50 M1 PO
[2020-01-24 15:26] LABS: BASO % 0.4 % (0.0-1.0); EOS % 0.3 % (1.0-4.0); HEMATOCRIT 36.6 % (37.0-47.0); LYMPH # 0.9 10*3/uL (1.3-4.4); LYMPH % 8.3 % (27.0-41.0); MEAN CORPUSCULAR HGB 29.6 pg (27.0-31.0); MEAN CORPUSCULAR HGB CONC 32.2 g/dl (33.0-37.0); MEAN PLATELET VOLUME 10.2 fl (9.6-12.3); MONO # 0.7 10*3/uL (0.1-1.0); MONO % 5.9 % (3.0-9.0); NEUT # 9.4 10*3/uL (2.3-7.9); NEUT % 84.8 % (47.0-73.0); PLATELET COUNT AUTOMATED 256 10*3/uL (130-400); RED BLOOD COUNT 3.98 10*6/uL (4.10-5.10); RED CELL DISTRI WIDTH 14.8 % (0-14.5); WHITE BLOOD COUNT 11.1 10*3/uL (4.8-10.8)
[2020-01-24 15:38] LABS: ACT PARTIAL THROMBO TIME 31.7 SECONDS (20.0-32.1); INTERNATIONAL NORM RATIO 1.1 (2.0-3.5)
[2020-01-24 15:42] LABS: ALBUMIN 3.3 gm/dl (3.1-4.5); ALKALINE PHOSPHATASE 76 U/L (45-117); BUN 13 mg/dl (7-24); CHLORIDE 105 mmol/L (98-107); CREATININE 0.68 mg/dL (0.55-1.02); POTASSIUM 3.7 mmol/L (3.5-5.1); SGOT/AST 11 IU/L (3-35); SGPT/ALT 15 U/L (12-78); SODIUM 137 mmol/L (136-145)
[2020-01-24 15:44] LABS: TROPONIN I < 0.015 ng/ml (<0.045)
--- NOTE | 2020-01-24 15:56 | NUR ---
PT RESTING IN BED. WAS PROVIDED ANOTHER BLANKET. CARDIZEM STARTED
--- NOTE | 2020-01-24 16:43 | NUR ---
PT RESTING IN BED. STATES PRESSURE IN CHEST IS IMPROVING
--- NOTE | 2020-01-24 17:49 | NUR ---
A 79, admitted to 4E, under the services of EDUARDA Jensen MD with a diagnosis of CHEST PAIN . Chief complaint is CHEST PAIN . Patient arrived via stretcher from ER. Monitor applied. Initial assessment completed. Vital signs taken and recorded. EDUARDA JENSEN MD notified of admission to the unit. Orders received. See assessment for past medical history, medications and allergies. Patient and/or family oriented to unit. [facility] visitation policy reviewed. Clothing/patient valuable form completed. RAOUL SALOMON
--- NOTE | 2020-01-24 19:21 | NUR ---
DR RICE NOTFIED OF PT HAVING A STAGE 1 ON COCCYX
--- NOTE | 2020-01-24 20:01 | NUR ---
PATIENT RESTING ON BACK, NO NEEDS MADE. CARDIZEM GTT INFUSING PER ORDERS; HR 90'S, RHYTHM STRIP SHOWING AFIB. SEE SHIFT ASSESSMENT.
[2020-01-25] VITALS: BP 108/48; BP 113/43
[2020-01-25 02:00] VITALS: BP 104/57
[2020-01-25 04:00] VITALS: BP 103/42
--- NOTE | 2020-01-25 04:04 | NUR ---
ALLEN LO [id number] Please refer to the physician's history and physical for past medical history, comorbid conditions, and allergies. Diagnosis: CHEST PAIN ATRIAL FIBRILLATION WITH RVR Forest Score: 16,AT RISK WOUND DESCRIPTIONS: Wound Number: 1 Location of the wound: coccyx scar tissue noted measuring 9.0cm x 10.5cm x <0.1cm. No open areas noted at time of assessment. No drainage noted at time of assessment. Area is red and pink in color. Patient states there is discomfort but there isn't at the same time. Surface the patient is resting on: Position Pro SKIN PREVENTION RECOMMENDATION: 1. Pressure redistribution support surface as appropriate 2. Elevate heels 3. Remove boots/TEDS every shift and reapply 4. Head of bed 30 degrees as tolerated 5. Assess nutrition and hydration 6. Manage moisture 7. Avoid the use of containment devices while in bed 8. Use absorptive products on surfaces limit layers of linens on bed 9. Turn and reposition every 1-2 hours in bed and every 1 hour in chair as tolerated 10. Weight shifts every 15 minutes while up in chair 11. Offloading with pillows or device to keep heels elevated off bed 12. Monitor skin at least every shift 13. Inspect under medical devices twice a day WOUND TREATMENT RECOMMENDATIONS: Wheelchair cushion when oob Apply sureprep to coccyx allow time to dry the cover with optifoam gentle daily and prn for soiling.
--- NOTE | 2020-01-25 05:29 | NUR ---
DR RICE ON FLOOR AND NOTIFIED OF PT'S BP & HR, STATES DC SCOTT GTT.
[2020-01-25 06:13] LABS: BUN 13 mg/dl (7-24); CHLORIDE 109 mmol/L (98-107); POTASSIUM 3.9 mmol/L (3.5-5.1); SODIUM 140 mmol/L (136-145)
[2020-01-25 06:24] LABS: DIGOXIN 0.74 ng/ml (0.8-2.0)
--- NOTE | 2020-01-25 09:00 | NUR ---
Twister Frame Tender in to talk to patient. Patient states lives at home alone with her cousin staying with her at night from approximately 8p-10a. There are 12 steps in the home. Physician: Dr. Paty Hairston Pharmacy: [facility] Home health services: [facility] and [facility] Patient's level of ADLs: MINIMAL ASSIST Patient has working utilities: yes DME: walker, grabber Follow-up physician's appointment after d/c: she prefers to make her own follow up appt after discharge Does patient want to access PORTAL?: no Discharge plan discussed with patient. She lives at home alone with her cousin staying with her at night from approximately 8pm - 10am. He cooks her breakfast and makes her coffee. He also takes care of his 80 yo mother. She states she is independent in her ADLs and uses a walker for ambulation. She states her mail gets dropped on the floor and she uses a hand grabber to pick it up. Her shower is in the basement but she has a chair lift. Discussed short term rehab and she refuses. Discussed home health care services and she states she currently has [facility] and would like to resume those services on discharge. She states she also has [facility] on Tuesday and Tuesday from 11am - 1pm. She states they change the bandages on her bed sores on her bottom. When medically stable she will be discharged to home with the resumption of her [facility] and [facility]. She states her brother will provide transportation on discharge. NAEEM CHOUDHARY
[2020-01-25 12:00] VITALS: BP 114/66
--- NOTE | 2020-01-25 13:42 | NUR ---
Faxed home health resumption order to [facility]
--- NOTE | 2020-01-25 14:13 | NUR ---
Nutritional Support Services Note: Stage I area noted on coccyx no open areas noted. Appetite is poor for at this time. Regular diet as ordered. Ht.5'4 Wt.132#. IBW 110-130. She refuses a supplment at this time. Will provide pt with a night snack. Will continue to follow as needed. Izzy Henson Rdn Ld
[2020-01-25 16:00] VITALS: BP 122/53
--- NOTE | 2020-01-25 18:17 | NUR ---
MR. BECKFORD ABSOLUTELY REFUSED TO HAVE PHOTEOS OF HIS WOUNDS TAKEN. HE IS VERY FRUSTRATED OVER BEING DISCHARGED AND IS CONFUSED TO WHY HE HAS TO GO TO [facility]. IT WAS EXPLAINED TO HIM BY MYSELF AND DR. JONES THAT HE NEEDS REHAB IN ORDER TO FEEL BETTER. HE IS SADLY FRUSTRATED AND SCOFFS AT ANY SUGGESTION.
[2020-01-25 20:00] VITALS: BP 122/69
[2020-01-26] VITALS: BP 119/46
[2020-01-26 06:11] LABS: BASO # 0.1 10*3/uL (0.0-0.1); BASO % 0.7 % (0.0-1.0); EOS # 0.2 10*3/uL (0.0-0.4); EOS % 2.2 % (1.0-4.0); HEMATOCRIT 35.8 % (37.0-47.0); LYMPH # 1.3 10*3/uL (1.3-4.4); LYMPH % 17.8 % (27.0-41.0); MEAN CELL VOLUME 91.1 fl (81.0-99.0); MEAN CORPUSCULAR HGB CONC 31.8 g/dl (33.0-37.0); MEAN PLATELET VOLUME 10.7 fl (9.6-12.3); MONO # 0.6 10*3/uL (0.1-1.0); MONO % 7.7 % (3.0-9.0); NEUT # 5.2 10*3/uL (2.3-7.9); NEUT % 71.3 % (47.0-73.0); PLATELET COUNT AUTOMATED 279 10*3/uL (130-400); RED BLOOD COUNT 3.93 10*6/uL (4.10-5.10); RED CELL DISTRI WIDTH 14.8 % (0-14.5); WHITE BLOOD COUNT 7.2 10*3/uL (4.8-10.8)
[2020-01-26 06:29] LABS: BUN 13 mg/dl (7-24); CHLORIDE 109 mmol/L (98-107); CREATININE 0.59 mg/dL (0.55-1.02); POTASSIUM 3.8 mmol/L (3.5-5.1); SODIUM 140 mmol/L (136-145)
[2020-01-26 08:00] VITALS: BP 108/50
--- NOTE | 2020-01-26 08:00 | NUR ---
PATIENT DENIES ANY NEEDS AT THIS TIME OTHER THAN SHE WANTS TO GO HOME.
[2020-01-26 12:00] VITALS: BP 106/69
--- NOTE | 2020-01-26 15:45 | NUR ---
PATIENT DISCHARGED TO HOME.
--- NOTE | 2020-01-26 16:43 | NUR ---
PATIENT DISCHARGED TO HOME.
== END 2020-01-26 16:58 | disposition home health service (06) | DRG 309 ==
LOC: ED 15:00 → 4E 17:16 → EDHOLD 17:16 → 4E 17:19
PROVIDERS: Emergency Medicine; ADMIT Internal Medicine
DX: I48.21 Permanent atrial fibrillation (principal); I50.32 Chronic diastolic (congestive) heart failure; E46 Unspecified protein-calorie malnutrition; Z66 Do not resuscitate; Z51.5 Encounter for palliative care; I11.0 Hypertensive heart disease with heart failure; G89.29 Other chronic pain; M54.5 Low back pain; J44.9 Chronic obstructive pulmonary disease, unspecified; R62.7 Adult failure to thrive; K59.09 Other constipation; Z68.22 Body mass index [BMI] 22.0-22.9, adult; Z79.01 Long term (current) use of anticoagulants; Z80.1 Family history of malignant neoplasm of trachea, bronchus and lung; Z82.49 Family history of ischemic heart disease and other diseases of the circulatory system; Z82.3 Family history of stroke

== ENCOUNTER 2021-06-24 02:25 | Emergency (ER) | payer MEDICARE, OTHER | END 2021-06-24 03:03 | disposition home or self-care (01) | LOC: ED 02:25 | DX: I83.92 Asymptomatic varicose veins of left lower extremity (principal); Z79.899 Other long term (current) drug therapy ==

== ENCOUNTER 2021-09-07 17:35 | Inpatient (IN) | payer MEDICARE, OTHER ==
[~2021-09-07] VITALS: Ht 162.5 cm; Wt 60.4 kg
[2021-09-07 18:09] VITALS: BP 171/50
[2021-09-07] MEDS ORDERED: HYDROCHLOROTHIA25 M1 PO (18:10)
[2021-09-07] MEDS ORDERED: ZOCOR20 MG PO (18:11)
[2021-09-07 21:59] LABS: BILIRUBIN Negative (Negative); BLOOD Negative (Negative); CLARITY Clear (Clear); COLOR Yellow (Yellow); GLUCOSE Negative (Negative); KETONE Negative (Negative); LEUKO ESTERASE Negative (Negative); NITRITE Negative (Negative); PH 6.5 (4.5-8.0); UROBILINOGEN 0.2 E.U./dl (0.0-1.0)
[2021-09-07 22:07] LABS: BACTERIA 2+; MUCOUS TRACE; RBC 0-2 rbc/hpf (0-2); WBC 0-2 wbc/hpf (0-5)
[2021-09-07 23:33] LABS: BASO % 0.4 % (0.0-1.0); EOS # 0.1 10*3/uL (0.0-0.4); EOS % 1.7 % (1.0-4.0); HEMATOCRIT 36.8 % (37.0-47.0); LYMPH # 1.5 10*3/uL (1.3-4.4); LYMPH % 18.1 % (27.0-41.0); MEAN CELL VOLUME 86.6 fl (81.0-99.0); MEAN CORPUSCULAR HGB 29.9 pg (27.0-31.0); MEAN CORPUSCULAR HGB CONC 34.5 g/dl (33.0-37.0); MEAN PLATELET VOLUME 9.6 fl (9.6-12.3); MONO # 0.7 10*3/uL (0.1-1.0); MONO % 8.5 % (3.0-9.0); NEUT % 71.2 % (47.0-73.0); PLATELET COUNT AUTOMATED 259 10*3/uL (130-400); RED BLOOD COUNT 4.25 10*6/uL (4.10-5.10); RED CELL DISTRI WIDTH 12.7 % (0-14.5); WHITE BLOOD COUNT 8.4 10*3/uL (4.8-10.8)
[2021-09-08 00:15] VITALS: BP 142/86
[2021-09-08 04:08] VITALS: BP 126/82
[2021-09-08 06:54] VITALS: BP 146/60
[2021-09-08 18:30] VITALS: BP 151/82
[2021-09-08 20:00] VITALS: BP 134/58
[2021-09-09] VITALS: BP 141/64
[2021-09-09 08:00] VITALS: BP 128/55
[2021-09-09 12:00] VITALS: BP 140/70
[2021-09-09 16:00] VITALS: BP 119/55
[2021-09-09 20:00] VITALS: BP 92/65
[2021-09-10] VITALS: BP 116/58
[2021-09-10 08:00] VITALS: BP 123/72
[2021-09-10 12:00] VITALS: BP 119/81
[2021-09-10 16:00] VITALS: BP 131/69
[2021-09-10 20:00] VITALS: BP 147/63
[2021-09-11] VITALS: BP 135/68
[2021-09-11 08:00] VITALS: BP 150/68
[2021-09-11 12:00] VITALS: BP 160/71
== END 2021-09-11 17:25 | DRG 543 ==
LOC: ED 17:35 → 5E 09-08 02:21 → EDHOLD 09-08 02:21 → 5E 09-08 17:18
PROVIDERS: Internal Medicine; ADMIT Internal Medicine; ATTEND Internal Medicine
DX: M80.072A Age-related osteoporosis with current pathological fracture, left ankle and foot, initial encounter for fracture (principal); E46 Unspecified protein-calorie malnutrition; I48.21 Permanent atrial fibrillation; Z20.822 Contact with and (suspected) exposure to COVID-19; I10 Essential (primary) hypertension; E78.2 Mixed hyperlipidemia; J43.9 Emphysema, unspecified; R62.7 Adult failure to thrive; K59.09 Other constipation; R26.2 Difficulty in walking, not elsewhere classified; Z80.1 Family history of malignant neoplasm of trachea, bronchus and lung; Z79.01 Long term (current) use of anticoagulants; Z82.49 Family history of ischemic heart disease and other diseases of the circulatory system; Z68.22 Body mass index [BMI] 22.0-22.9, adult

== ENCOUNTER → 2022-06-02 | Day surgery (SDC) | payer MEDICARE, OTHER ==
[~2022-06-02] VITALS: Ht 162.5 cm; Wt 59.0 kg
[~2022-06-02] MED LIST changes: +HYDROCHLOROTHIA25 M1 PO; +ZOCOR20 MG PO
[2022-06-02 12:16] VITALS: BP 159/86
[2022-06-02 12:31] VITALS: BP 157/85
[2022-06-02 12:46] VITALS: BP 164/87
== END | disposition home or self-care (01) ==
LOC: SDC 04-30 11:00
PROVIDERS: ATTEND Ophthalmology
DX: H25.811 Combined forms of age-related cataract, right eye (principal); I10 Essential (primary) hypertension; I48.91 Unspecified atrial fibrillation; F25.9 Schizoaffective disorder, unspecified; M81.0 Age-related osteoporosis without current pathological fracture; Z79.899 Other long term (current) drug therapy

== ENCOUNTER → 2022-08-04 | Day surgery (SDC) | payer MEDICARE, OTHER ==
[~2022-08-04] VITALS: Ht 170.1 cm; Wt 59.0 kg
[2022-08-04 07:17] VITALS: BP 154/80
[2022-08-04 08:22] VITALS: BP 164/82
[2022-08-04 08:37] VITALS: BP 132/70
[2022-08-04 08:46] VITALS: BP 129/68
== END | disposition home or self-care (01) ==
LOC: SDC 07-30 17:00
PROVIDERS: ATTEND Ophthalmology
DX: H25.812 Combined forms of age-related cataract, left eye (principal); I10 Essential (primary) hypertension; I48.91 Unspecified atrial fibrillation; F25.9 Schizoaffective disorder, unspecified; M81.0 Age-related osteoporosis without current pathological fracture; E78.00 Pure hypercholesterolemia, unspecified; Z79.899 Other long term (current) drug therapy

== ENCOUNTER → 2024-02-02 | Outpatient (CLI) | payer MEDICARE, OTHER | END | disposition home or self-care (01) | LOC: CARD 01-05 15:00 | PROVIDERS: ATTEND Internal Medicine | DX: M54.50 Low back pain, unspecified (principal) ==